=== PATIENT | female | born 2000 | race Caucasian/White ===

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

== ENCOUNTER 2019-01-24 15:14 | Emergency (ER) | payer MEDICAID ==
[~2019-01-24] VITALS: Ht 160 cm; Wt 71.7 kg
[2019-01-24 15:31] VITALS: BP_SYST 122
[2019-01-24 16:02] LABS: BILIRUBIN,URINE NEGATIVE (NEGATIVE); CLARITY/URINE CLEAR (CLEAR); COLOR,URINE YELLOW (YELLOW); GLUCOSE,URINE NEGATIVE (NEGATIVE); KETONES,URINE NEGATIVE (NEGATIVE); NITRITE, URINE NEGATIVE (NEGATIVE); PROTEIN URINE NEGATIVE (NEGATIVE); UROBILINOGEN,URINE 0.2 (0.2-1.0)
[2019-01-24 16:10] LABS: BASOPHILS % (AUTO) 0.4 % (0.0-2.0); EOSINOPHILS # (AUTO) 0.1 K/uL (0.0-0.4); EOSINOPHILS % (AUTO) 1.1 % (0.0-4.0); HEMATOCRIT 36.2 % (36-48); HEMOGLOBIN 11.9 g/dL (12.0-16.0); LYMPHOCYTES # (AUTO) 2.6 K/uL (1.0-5.5); MEAN CORPUSCULAR HEMOGLOBIN 28 pg (27-31); MEAN CORPUSCULAR HGB CONC 33 % (32-36); MEAN CORPUSCULAR VOLUME 84 fL (79.0-98.0); MONOCYTES # (AUTO) 0.8 K/uL (0.0-1.0); NEUTROPHILS # (AUTO) 5.8 K/uL (1.8-7.7); NEUTROPHILS % (AUTO) 61.5 % (40.0-70.0); PLATELET COUNT (AUTO) 271 K/uL (130-430); RED CELL DISTRIBUTION WIDTH 14.1 % (9.0-15.0); WHITE BLOOD COUNT (AUTO) 9.4 K/uL (4.5-11.0)
[2019-01-24 16:15] LABS: BLOOD, URINE TRACE (NEGATIVE); LEUKOCYTE ESTERASE ,URINE TRACE (NEGATIVE)
[2019-01-24 16:16] LABS: BACTERIA,URINE FEW /HPF (None Seen); MUCUS,URINE None Seen /LPF (None Seen); RBC,URINE NONE SEEN /HPF (0-3)
[2019-01-24 16:22] LABS: ALBUMIN 3.2 g/dL (3.4-4.8); CREATININE 0.71 mg/dL (0.55-1.30); POTASSIUM 3.9 mmol/L (3.5-5.1); TOTAL BILIRUBIN 0.3 mg/dL (0.0-1.0)
[2019-01-24 16:25] LABS: CALCIUM 8.9 mg/dL (8.4-11.0)
[2019-01-24 17:20] VITALS: BP_SYST 122
== END 2019-01-24 17:20 | disposition home or self-care (01) ==
LOC: SED 15:14
DX: K59.00 Constipation, unspecified (principal); J45.909 Unspecified asthma, uncomplicated; Z88.1 Allergy status to other antibiotic agents
CPT/HCPCS: 36415; 80053; 81000-TC; 81025; 83690-TC; 85025; 99284

== ENCOUNTER 2019-03-27 04:10 | Inpatient (IN) | payer OTHER ==
[~2019-03-27] VITALS: Ht 160 cm; Wt 72.6 kg
[2019-03-27 04:20] VITALS: BP_SYST 130
[2019-03-27] MEDS ORDERED: ONDANSETRON HCL 4 MG/2 ML VIAL IVP ONE (04:45)
[2019-03-27] MEDS ORDERED: MORPHINE 4 MG/ML INJ. SYRINGE IVP ONE (04:45)
[2019-03-27] MEDS ORDERED: CLINDAMYCIN 900 mg/50mL D5W 50 ML IV ONE (04:45)
[2019-03-27] MEDS ORDERED: DEXAMETHASONE SOD PHOSPHATE 10 MG/ML VIAL IVP ONE (04:45)
[2019-03-27] MEDS ORDERED: NACL 0.9% 1,000 ML IV ONE (04:45)
[2019-03-27 05:35] LABS: BASOPHILS # (AUTO) 0.1 K/uL (0.0-0.2); BASOPHILS % (AUTO) 0.4 % (0.0-2.0); EOSINOPHILS # (AUTO) 0.1 K/uL (0.0-0.4); EOSINOPHILS % (AUTO) 0.7 % (0.0-4.0); HEMATOCRIT 34.8 % (36-48); HEMOGLOBIN 11.4 g/dL (12.0-16.0); LYMPHOCYTES % (AUTO) 19.6 % (20.5-51.5); MEAN CORPUSCULAR HEMOGLOBIN 27 pg (27-31); MEAN CORPUSCULAR HGB CONC 33 % (32-36); MEAN CORPUSCULAR VOLUME 81 fL (79.0-98.0); MONOCYTES # (AUTO) 1.2 K/uL (0.0-1.0); MONOCYTES % (AUTO) 7.9 % (1.7-9.3); NEUTROPHILS # (AUTO) 11.1 K/uL (1.8-7.7); NEUTROPHILS % (AUTO) 71.4 % (40.0-70.0); PLATELET COUNT (AUTO) 379 K/uL (130-430); RED BLOOD CELL COUNT(AUTO) 4.29 MIL/uL (4.2-6.2); RED CELL DISTRIBUTION WIDTH 13.5 % (9.0-15.0); WHITE BLOOD COUNT (AUTO) 15.5 K/uL (4.5-11.0)
[2019-03-27 05:46] LABS: CREATININE 0.54 mg/dL (0.55-1.30); POTASSIUM 3.6 mmol/L (3.5-5.1)
[2019-03-27 05:52] LABS: MONOTEST NEGATIVE (NEGATIVE); TOTAL BILIRUBIN 0.2 mg/dL (0.0-1.0)
[2019-03-27 07:14] LABS: STREPTOCOCCUS A SCREEN (RAPID) NEGATIVE (NEGATIVE)
[2019-03-27] MEDS ORDERED: ONDANSETRON HCL 4 MG/2 ML VIAL IVP PRN (07:30)
[2019-03-27] MEDS ORDERED: KETOROLAC TROMETHAMINE 15 MG VIAL IVP PRN (07:30)
[2019-03-27] MEDS ORDERED: ACETAMINOPHEN 325 MG TABLET PO PRN (07:30)
[2019-03-27] MEDS ORDERED: CLINDAMYCIN 900 MG in D5W 100 ML IV SCH (07:30)
[2019-03-27] MEDS: D5LR 1,000 ML IV SCH (07:30)
[2019-03-27] MEDS ORDERED: CLINDAMYCIN 900 MG in D5W 100 ML IV ONE (13:00)
[2019-03-27] MEDS ORDERED: PIPERACILLIN/TAZO 3.375/DEX-IS 50 ML IV SCH (18:00)
[2019-03-27] MEDS: MORPHINE 4 MG/ML INJ. SYRINGE IVP PRN (18:12)
[2019-03-27] MEDS: CLINDAMYCIN 600 mg/50mL D5W 50 ML IV SCH ×2 (18:21→23:58)
[2019-03-27] MEDS: cefTRIAXone 1 GM in D5W 50 ML IV SCH (20:52)
[2019-03-27 21:26] VITALS: BP_SYST 109
[2019-03-28] VITALS: BP_SYST 110
[2019-03-28] MEDS: D5LR 1,000 ML IV SCH (03:59)
[2019-03-28] MEDS: CLINDAMYCIN 600 mg/50mL D5W 50 ML IV SCH ×3 (05:48→18:24)
[2019-03-28 09:08] LABS: BASOPHILS % (AUTO) 0.2 % (0.0-2.0); EOSINOPHILS % (AUTO) 0.5 % (0.0-4.0); HEMATOCRIT 32.2 % (36-48); HEMOGLOBIN 10.9 g/dL (12.0-16.0); LYMPHOCYTES # (AUTO) 3.2 K/uL (1.0-5.5); LYMPHOCYTES % (AUTO) 30.2 % (20.5-51.5); MEAN CORPUSCULAR HEMOGLOBIN 27 pg (27-31); MEAN CORPUSCULAR HGB CONC 34 % (32-36); MEAN CORPUSCULAR VOLUME 81 fL (79.0-98.0); MONOCYTES # (AUTO) 0.9 K/uL (0.0-1.0); MONOCYTES % (AUTO) 8.2 % (1.7-9.3); NEUTROPHILS # (AUTO) 6.5 K/uL (1.8-7.7); NEUTROPHILS % (AUTO) 60.9 % (40.0-70.0); PLATELET COUNT (AUTO) 349 K/uL (130-430); RED BLOOD CELL COUNT(AUTO) 3.98 MIL/uL (4.2-6.2); RED CELL DISTRIBUTION WIDTH 13.3 % (9.0-15.0); WHITE BLOOD COUNT (AUTO) 10.7 K/uL (4.5-11.0)
[2019-03-28 09:29] LABS: CALCIUM 8.8 mg/dL (8.4-11.0); CREATININE 0.62 mg/dL (0.55-1.30); POTASSIUM 3.6 mmol/L (3.5-5.1)
[2019-03-28] MEDS: MORPHINE 4 MG/ML INJ. SYRINGE IVP PRN (11:36)
[2019-03-28 14:10] VITALS: BP_SYST 123
[2019-03-28] MEDS ORDERED: LACTOBACILLUS RHAMNOSUS GG 1 CAP CAPSULE PO ONE (14:15)
[2019-03-28] MEDS: LR 1,000 ML IV SCH (15:25)
[2019-03-28 16:00] VITALS: BP_SYST 118
[2019-03-28 20:00] VITALS: BP_SYST 104
[2019-03-28] MEDS: cefTRIAXone 1 GM in D5W 50 ML IV SCH (21:08)
[2019-03-28] MEDS: LACTOBACILLUS RHAMNOSUS GG 1 CAP CAPSULE PO SCH (21:12)
[2019-03-29] VITALS: BP_SYST 111
[2019-03-29] MEDS: LR 1,000 ML IV SCH (03:40)
[2019-03-29] MEDS: CLINDAMYCIN 600 mg/50mL D5W 50 ML IV SCH ×5 (05:54→23:21)
[2019-03-29 08:35] VITALS: BP_SYST 105
[2019-03-29] MEDS: LACTOBACILLUS RHAMNOSUS GG 1 CAP CAPSULE PO SCH ×2 (09:16→21:00)
[2019-03-29] MEDS: MORPHINE 4 MG/ML INJ. SYRINGE IVP PRN (09:17)
[2019-03-29] MEDS ORDERED: MORPHINE 4 MG/ML INJ. SYRINGE ONE (09:19)
[2019-03-29 12:00] VITALS: BP_SYST 103
[2019-03-29 16:30] VITALS: BP_SYST 112
[2019-03-29] MEDS: cefTRIAXone 1 GM in D5W 50 ML IV SCH (20:54)
[2019-03-30 04:06] VITALS: BP_SYST 111
[2019-03-30 05:58] LABS: BASOPHILS % (AUTO) 0.3 % (0.0-2.0); EOSINOPHILS # (AUTO) 0.2 K/uL (0.0-0.4); EOSINOPHILS % (AUTO) 2.4 % (0.0-4.0); HEMATOCRIT 32.5 % (36-48); HEMOGLOBIN 10.9 g/dL (12.0-16.0); LYMPHOCYTES % (AUTO) 44.4 % (20.5-51.5); MEAN CORPUSCULAR HEMOGLOBIN 27 pg (27-31); MEAN CORPUSCULAR HGB CONC 34 % (32-36); MEAN CORPUSCULAR VOLUME 81 fL (79.0-98.0); MONOCYTES # (AUTO) 0.7 K/uL (0.0-1.0); MONOCYTES % (AUTO) 10.9 % (1.7-9.3); NEUTROPHILS # (AUTO) 2.9 K/uL (1.8-7.7); PLATELET COUNT (AUTO) 367 K/uL (130-430); RED BLOOD CELL COUNT(AUTO) 4.02 MIL/uL (4.2-6.2); RED CELL DISTRIBUTION WIDTH 13.4 % (9.0-15.0); WHITE BLOOD COUNT (AUTO) 6.8 K/uL (4.5-11.0)
[2019-03-30 06:09] LABS: CALCIUM 8.4 mg/dL (8.4-11.0); CREATININE 0.54 mg/dL (0.55-1.30); POTASSIUM 3.7 mmol/L (3.5-5.1)
[2019-03-30] MEDS: CLINDAMYCIN 600 mg/50mL D5W 50 ML IV SCH ×2 (07:22→12:07)
[2019-03-30 08:04] VITALS: BP_SYST 108
[2019-03-30] MEDS: LACTOBACILLUS RHAMNOSUS GG 1 CAP CAPSULE PO SCH (09:01)
[2019-03-30 12:26] VITALS: BP_SYST 123
[2019-03-30] MEDS ORDERED: CEPH-568 PO (13:24)
[2019-03-30] MEDS ORDERED: MULT18TA PO (13:29)
[2019-03-30] MEDS ORDERED: VITD2000 PO (13:30)
[2019-03-30 15:06] VITALS: BP_SYST 100
[2019-03-30 16:07] VITALS: BP_SYST 100
== END 2019-03-30 16:06 | disposition home or self-care (01) | DRG 872 ==
LOC: SED 04:10 → SMU 07:18
PROVIDERS: ADMIT Internal Medicine; ATTEND Internal Medicine
DX: A41.9 Sepsis, unspecified organism (principal); J02.9 Acute pharyngitis, unspecified
CPT/HCPCS: 36415; 70487; 70491-TC; 80048; 80053; 83605; 84703; 85025; 86308-TC; 86403; 87040-TC; 87081; 96361; 96365; 99285; J0696; J2270; J3490; J7030; J7060; J7120

== ENCOUNTER 2020-11-08 16:49 | Emergency (ER) | payer MEDICAID, OTHER ==
[~2020-11-08] VITALS: Ht 162.6 cm; Wt 69.9 kg
[~2020-11-08 16:49] MED LIST: CEPH-568 PO; MULT18TA PO; VITD2000 PO
[2020-11-08 16:55] VITALS: BP_SYST 149
--- NOTE | 2020-11-08 17:00 | NUR ---
PT TO BED 5 FOR EVALUATION. REPORT GIVEN TO SREEKANTH GOINS WHO WILL ASSUME CARE.
--- NOTE | 2020-11-08 17:09 | NUR ---
ER at bedside examining patient.
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
[2020-11-08] MEDS ORDERED: IBUP-1969 PO (18:00)
[2020-11-08] MEDS: IBUPROFEN 800 MG TABLET PO ONE (18:06)
--- NOTE | 2020-11-08 18:14 | NUR ---
Patient given written and verbal discharge instructions and verbalizes understanding. ER Dr. Bryson discussed with patient the results and treatment provided. Patient in stable condition. ID arm band removed. Patient educated on pain management and to follow up with PMD. Pain Scale 3. Opportunity for questions provided and answered. Medication side effect fact sheet provided.
== END 2020-11-08 18:13 | disposition home or self-care (01) ==
LOC: SED 16:49
DX: S09.90XA Unspecified injury of head, initial encounter (principal); J45.909 Unspecified asthma, uncomplicated; Z91.018 Allergy to other foods; Z91.010 Allergy to peanuts; Z91.013 Allergy to seafood; Z88.1 Allergy status to other antibiotic agents; Z79.899 Other long term (current) drug therapy; W18.39XA Other fall on same level, initial encounter; Y93.89 Activity, other specified; Y92.89 Other specified places as the place of occurrence of the external cause; Y99.8 Other external cause status
CPT/HCPCS: 70450-TC; 76376; 81025; 99284